=== PATIENT | male | born 1970 | race Caucasian/White ===

== ENCOUNTER → 2018-02-04 | Outpatient (CLI) | payer OTHER ==
[~2018-02-04] MED LIST: AMOXICILLIN 8751 TAB PO; CHOL MED; COUMADIN5 MG PO
== END ==
LOC: COL.RAD 12:56
DX: M25.552 Pain in left hip (principal)
CPT/HCPCS: J3301; Q9967

== ENCOUNTER 2019-08-14 17:58 | Emergency (ER) | payer OTHER ==
[~2019-08-14] VITALS: Ht 177.8 cm; Wt 125.0 kg
[2019-08-14 18:08] VITALS: BP 139/79; TEMP 98.7
[2019-08-14 18:42] LABS: INR 1.9 (0.8-3.0); PROTHROMBIN TIME 22.1 SECONDS (9.7-12.8)
[2019-08-14 18:49] LABS: D-DIMER < 200.00 ng/mLDDu (200-230)
[2019-08-14 19:50] VITALS: PULSE 85
== END 2019-08-14 19:50 | disposition home or self-care (01) ==
LOC: COL.ER 17:58
PROVIDERS: Emergency Medicine
DX: M79.605 Pain in left leg (principal); Z86.718 Personal history of other venous thrombosis and embolism; Z86.711 Personal history of pulmonary embolism; Z79.01 Long term (current) use of anticoagulants

== ENCOUNTER → 2019-08-15 | Outpatient (CLI) | payer OTHER | LOC: COL.VAS 13:05 | DX: M79.604 Pain in right leg (principal); Z86.718 Personal history of other venous thrombosis and embolism ==